=== PATIENT | female | born 1985 ===

== ENCOUNTER 2024-06-15 10:13 | Outpatient (CLI) | payer BC | END 2024-06-15 23:59 | disposition home or self-care (01) | LOC: MRI 10:13 | PROVIDERS: ATTEND Podiatrist Foot & Ankle Surgery | DX: M76.62 Achilles tendinitis, left leg (principal); M72.2 Plantar fascial fibromatosis; M25.374 Other instability, right foot; M25.375 Other instability, left foot; M21.6X2 Other acquired deformities of left foot; M21.6X1 Other acquired deformities of right foot; M25.572 Pain in left ankle and joints of left foot; M25.571 Pain in right ankle and joints of right foot; M79.672 Pain in left foot; M79.671 Pain in right foot | CPT/HCPCS: 73721 ==